=== PATIENT | male | born 1990 | race Caucasian/White ===

== ENCOUNTER 2023-06-14 00:01 | Emergency (ER) | payer BC ==
[~2023-06-14] VITALS: Ht 177.8 cm; Wt 85.0 kg
[2023-06-14 00:05] VITALS: BP 150/94; PULSE 110; RESP 18; TEMP 98.6; O2SAT 98
[2023-06-14] MEDS ORDERED: FAMOTIDINE 20MG TABLET PO NR (00:45)
[2023-06-14] MEDS ORDERED: MAGNESIUM/ALUMINUM HYDROXIDE/SIMETHICONE 30ML UDC PO NR (00:45)
== END 2023-06-14 00:42 | disposition left against medical advice (07) ==
LOC: ER 00:14
DX: R07.89 Other chest pain (principal); Z53.21 Procedure and treatment not carried out due to patient leaving prior to being seen by health care provider
CPT/HCPCS: 93005; 99281